=== PATIENT | female | born 1965 | race Caucasian/White ===

== ENCOUNTER 2017-04-03 10:35 | Emergency (ER) | payer OTHER ==
[~2017-04-03] VITALS: Ht 172.7 cm; Wt 129.3 kg
--- NOTE | 2017-04-03 11:20 | PHYS DOC ---
Adult General Chief Complaint Chief Complaint: CHEST PAIN HPI HPI She 1-year-old female with a prior history of a negative stress test approximately 2 years ago now presents to the emergency department complaining of chest pain. This morning patient experienced mid chest pressure radiating to her left arm. She denies nausea vomiting diaphoresis or shortness of air. Patient has no productive cough or fever. Pain is not pleuritic and not affected by deep inspiration. Not worse with movement or palpation. Patient has had no recent illness. Currently pain free at rest denies abdominal pain she is not a smoker, she does have hypertension high cholesterol and type 2 diabetes with no insulin use and no known family history of coronary artery disease Review of Systems Review of Systems Constitutional: Denies fever or chills [] Eyes: Denies change in visual acuity, redness, or eye pain [] HENT: Denies nasal congestion or sore throat [] Respiratory: Denies cough or shortness of breath [] Cardiovascular: No additional information not addressed in HPI [] GI: Denies abdominal pain, nausea, vomiting, bloody stools or diarrhea [] : Denies dysuria or hematuria [] Musculoskeletal: Denies back pain or joint pain [] Integument: Denies rash or skin lesions [] Neurologic: Denies headache, focal weakness or sensory changes [] Endocrine: Denies polyuria or polydipsia [] Physical Exam Physical Exam Well-appearing 51-year-old patient no acute distress alert communicative cooperative and appropriate. Smiling and cheerful. Nontender chest wall no skin changes no mass or megaly clear lungs regular rate and rhythm no murmur. Constitutional: Well developed, well nourished, no acute distress, non-toxic appearance. [] HENT: Normocephalic, atraumatic, bilateral external ears normal, oropharynx moist, no oral exudates, nose normal. [] Eyes: PERRLA, EOMI, conjunctiva normal, no discharge. [] Neck: Normal range of motion, no tenderness, supple, no stridor. [] Cardiovascular:Heart rate regular rhythm, no murmur [] nontender chest wall Lungs & Thorax: Bilateral breath sounds clear to auscultation [] Abdomen: Bowel sounds normal, soft, no tenderness, no masses, no pulsatile masses. [] Skin: Warm, dry, no erythema, no rash. [] Back: No tenderness, no CVA tenderness. [] Extremities: No tenderness, no cyanosis, no clubbing, ROM intact, no edema. [] Neurologic: Alert and oriented X 3, normal motor function, normal sensory function, no focal deficits noted. [] Psychologic: Affect normal, judgement normal, mood normal. [] EKG EKG Normal sinus rhythm at 76 left axis deviation and left anterior hemiblock no STEMI [] Radiology/Procedures Radiology/Procedures Chest x-ray right changes no acute disease interpreted by me Course & Med Decision Making Course & Med Decision Making Pertinent Labs and Imaging studies reviewed. (See chart for details) Signs and symptoms consistent with chest pain a possible cardiac etiology in a 51-year-old female with multiple cardiac risk factors including tobacco hypertension and high cholesterol and obesity. Pain-free and well-appearing now. EKG unremarkable. Labs pending. Anticipate admission for cardiac workup. Patient took full strength aspirin at home. Hemodynamically stable. If results unremarkable we'll discussed with hospitalist regarding inpatient admission to their service. Cup unremarkable. Patient insists on leaving AMA. She is aware of the risk of or permanent disability. Patient is encouraged to return any time she changes her mind. I-STAT troponin was repeated prior to patient's leaving AGAINST MEDICAL ADVICE. She is aware that this is reassuring that it was negative but not definitive to rule out the possibility of evolving cardiac disease. She is aware this pain could be a result of cardiac ischemia or some other cause within the chest pertaining to the heart or lungs. Despite the risk of or disability she feels strongly that she would like to sign out AGAINST MEDICAL ADVICE. This is been discussed with her at length and she is competent to make that decision. Patient will follow-up with her primary care doctor and yolk spray drier for further workup and definitive evaluation. She is aware to return any time as we are happy to see her again and get her admitted for full workup. Encouragement to return any time given. [] Dragon Disclaimer Dragon Disclaimer This chart was dictated in whole or in part using Voice Recognition software in a busy, high-work load, and often noisy Emergency Department environment. It may contain unintended and wholly unrecognized errors or omissions. Departure Departure: Impression: Primary Impression: Chest pain Additional Impression: Left against medical advice Disposition: HOME, SELF-CARE Condition: GUARDED Referrals: MALLORY KUMAR APRN (PCP) Patient Instructions: Chest Pain Observation Additional Instructions: We were concerned about your chest pain today and as there is a possibility that the pain could be coming from some evolving heart disease, we have recommended admission overnight for further workup , cardiology consultation, and treatment as needed. You have decided not to stay overnight for further workup and evaluation so this is described as "leaving AGAINST MEDICAL ADVICE. "Your results today were reassuring and did not definitively diagnose that you' ve had any injury to your heart or even that the pain is definitely from your heart, liver that is the most dangerous possibility as a cause for your pain hence the recommended admission. Follow-up with your doctor and your yolk spray drier tomorrow for reevaluation and to discuss further workup evaluation and treatment as needed. If you change your mind and are willing to be admitted for what is the standard workup for your chest pain condition, we would be happy to have you back is arrangements. Even if you get out to the parking lot or] home, and change your mind, feel free to return immediately. Problem Qualifiers SALOMÓN HARMAN MD Apr 03, 2017 11:20
[2017-04-03 11:21] LABS: HEMATOCRIT 45.6 % (36.0-47.0); HEMOGLOBIN 15.2 g/dL (12.0-15.5); MEAN CORPUSCULAR HEMOGLOBIN 31 pg (25-35); MEAN CORPUSCULAR HGB CONC 33 g/dL (31-37); MEAN CORPUSCULAR VOLUME 92 fL (79-100); PLATELET COUNT 186 x10^3/uL (140-400); RED BLOOD COUNT 4.98 x10^6/uL (3.50-5.40); RED CELL DISTRIBUTION WIDTH 13.2 % (11.5-14.5); WHITE BLOOD COUNT 8.3 x10^3/uL (4.0-11.0)
[2017-04-03 11:35] LABS: ALBUMIN 3.7 g/dL (3.4-5.0); ALBUMIN/GLOBULIN RATIO 0.9 (1.0-1.7); CALCIUM 9.2 mg/dL (8.5-10.1); POTASSIUM 4.3 mmol/L (3.5-5.1); TOTAL BILIRUBIN 0.5 mg/dL (0.2-1.0); TOTAL PROTEIN 7.6 g/dL (6.4-8.2)
--- NOTE | 2017-04-03 11:35 | RAD ---
Portable chest, 04/03/2017: History: Chest pain The heart size and pulmonary vascularity are normal. The lungs are clear. There is no evidence of pleural fluid. IMPRESSION: No acute cardiopulmonary abnormality is detected.
[2017-04-03 11:38] LABS: % LYMPHS 28 % (24-48); % MONOS 4 % (0-10); % SEGS 68 % (35-66)
[2017-04-03 11:39] LABS: PLT ESTIMATE ADEQUATE (ADEQUATE)
--- NOTE | 2017-04-03 11:44 | EKG ---
[address] [address] Test Date: 2017-04-03 Test Time: 10:51:25 Pat Name: ROSARIO WEST Department: Room: Gender: F Cartridge Gauger: : 1965 Requested By: SALOMÓN HARMAN Order Number: [id number] Reading MD: Measurements Intervals Jud Rate: 76 P: 56 MA: 140 QRS: -56 QRSD: 98 T: 24 QT: 358 QTc: 407 Interpretive Statements SINUS RHYTHM ABNORMAL LEFT AXIS DEVIATION LEFT ANTERIOR FASCICULAR BLOCK QRS(T) CONTOUR ABNORMALITY CONSISTENT WITH ANTEROSEPTAL INFARCT PROBABLY OLD RI6.01 Unconfirmed report No previous ECG available for comparison
[2017-04-03 14:10] VITALS: BP 136/59
== END 2017-04-03 14:20 | disposition home or self-care (01) ==
LOC: ER 10:35
DX: R07.9 Chest pain, unspecified (principal); I10 Essential (primary) hypertension; E78.00 Pure hypercholesterolemia, unspecified
CPT/HCPCS: 36415; 71010; 80053; 84484; 85007; 85025; 93005; 99285-25

== ENCOUNTER → 2017-05-08 | Outpatient (CLI) | payer OTHER ==
--- NOTE | 2017-05-08 16:00 | RAD ---
DATE: 05/08/2017 EXAM: DIGITAL SCREEN BILAT W/CAD HISTORY: Routine screening COMPARISON: 04/02/2016 This study was interpreted with the benefit of Computerized Aided Detection (CAD). FINDINGS: Breast Density: FATTY The Breast Parenchyma is primarily fatty replaced. Breast parenchyma level density A.. There are no dominant suspicious masses, suspicious microcalcifications or evidence of architectural distortion. Intramammary lymph nodes identified in the bilateral breasts similar to prior exam. IMPRESSION: Benign findings BI-RADS CATEGORY: 2 BENIGN FINDING RECOMMENDED FOLLOW-UP: 12M 12 MONTH FOLLOW-UP PQRS compliance statement: Patient information was entered into a reminder system with a target due date 04/02/2016 for the next mammogram. Mammography is a sensitive method for finding small breast cancers, but it does not detect them all and is not a substitute for careful clinical examination. A negative mammogram does not negate a clinically suspicious finding and should not result in delay in biopsying a clinically suspicious abnormality. "Our facility is accredited by the [employer] Mammography [employer]."
== END | disposition home or self-care (01) ==
LOC: MAMMO 14:41
PROVIDERS: ATTEND Nurse Practitioner
DX: Z12.31 Encounter for screening mammogram for malignant neoplasm of breast (principal)
CPT/HCPCS: G0202; 77067

== ENCOUNTER → 2021-03-29 | Outpatient (CLI) | payer OTHER ==
--- NOTE | 2021-03-29 17:05 | RAD ---
INDICATION: 55 years of age asymptomatic female patient presents for screening mammography. TECHNIQUE: Full field craniocaudal and mediolateral oblique images of both breasts were obtained usi ng digital technique with tomosynthesis and also analyzed with computer-aided detection software. COMPARISON: 05/08/2017 04/02/2016 . BREAST COMPOSITION: Category A: The breasts are predominantly fatty. FINDINGS: Benign calcifications are present. No suspicious masses, microcalcifications or architectural distortion is present to suggest malignanc y in either breast. The visualized axillae are unremarkable. IMPRESSION: No mammographic evidence of malignancy. RECOMMENDATION: Annual screening mammography is recommended, unless clinically indicated sooner based on symptoms or change in physical exam. BIRADS 2: BENIGN This study was interpreted with the benefit of Computerized Aided Detection (CAD). Patient information is entered into the reminder system with a target due date for the next screening mammogram. Mammography is the most sensitive method for finding small breast cancers, but it does not detect the m all and is not a substitute for careful clinical examination. A negative mammogram does not negate a clinically suspicious finding and should not result in delay in biopsying a clinically suspicious a bnormality. "Our facility is accredited by the [employer] Mammography [employer]." Electronically signed by: Bhupendra James MD (03/29/2021 5:02 PM) [facility]
== END ==
LOC: MAMMO 07:49
PROVIDERS: ATTEND Nurse Practitioner Family
DX: Z12.31 Encounter for screening mammogram for malignant neoplasm of breast (principal)
CPT/HCPCS: 77063; 77067